=== PATIENT | female | born 1990 | race Caucasian/White ===

== ENCOUNTER 2016-10-14 23:14 | Emergency (ER) | payer MEDICAID ==
[~2016-10-14] VITALS: Ht 165.1 cm; Wt 135.9 kg
[~2016-10-14 23:14] MED LIST: ALBU0.424 IH; HYDR-4031 PO; PARO10TA89 PO
[2016-10-14] MEDS ORDERED: PARO20TA24 PO (23:22)
[2016-10-15] MEDS ORDERED: LIDOCAINE HCL BUFFERED 1% 20 ML VIAL INJ ONE (00:30)
[2016-10-15] MEDS ORDERED: CefTRIAXone 1 GM/DEXTROSE 50 ML IV ONE (00:30)
[2016-10-15 01:07] LABS: BASOPHILS % (AUTO) 0.6 % (0.0-2.0); EOSINOPHILS % (AUTO) 1.7 % (1.0-6.0); HEMOGLOBIN 11.7 g/dL (12.0-16.0); LYMPHOCYTES # (AUTO) 3.7 K/uL (1.0-4.8); LYMPHOCYTES % (AUTO) 39.7 % (22.0-44.0); MEAN CORPUSCULAR HGB CONC 31.6 G/dL (31.0-37.0); MEAN CORPUSCULAR VOLUME 79 fL (80-100); MONOCYTES # (AUTO) 0.6 K/uL (0.1-1.0); MONOCYTES % (AUTO) 6.7 % (2.0-9.0); NEUTROPHILS # (AUTO) 4.7 K/uL (1.8-7.7); NEUTROPHILS % (AUTO) 51.3 % (40.0-70.0); PLATELET COUNT (AUTO) 261 K/uL (150-450); RED BLOOD CELL COUNT(AUTO) 4.68 MIL/uL (4.00-5.20); RED CELL DISTRIBUTION WIDTH 15.3 % (11.5-14.5); WHITE BLOOD COUNT (AUTO) 9.2 K/uL (4.5-11.0)
[2016-10-15 01:12] LABS: ANION GAP 7 mmol/L (8-16); CALCIUM, TOTAL 8.6 mg/dL (8.8-10.5); CARBON DIOXIDE 30 mmol/L (22-29); CHLORIDE 101 mmol/L (98-107); CREATININE 0.92 mg/dL (0.60-1.30); GLOMERULAR FILTR. RATE CALC > 60 mL/min (>60); POTASSIUM 4.1 mmol/L (3.5-5.1); SODIUM SERUM 138 mmol/L (136-145); UREA NITROGEN, BLOOD 5 mg/dL (7-18)
[2016-10-15 03:03] VITALS: BP 114/80
== END 2016-10-15 03:05 | disposition home or self-care (01) ==
LOC: EMS 23:15
DX: L03.115 Cellulitis of right lower limb (principal); R51 Headache; J45.909 Unspecified asthma, uncomplicated
CPT/HCPCS: 10160; 36415; 80048; 84703; 85025; 96365; 99284; J0696; J3490

== ENCOUNTER 2017-01-02 21:24 | Emergency (ER) | payer MEDICAID ==
[~2017-01-02] VITALS: Ht 160 cm; Wt 136.0 kg
[~2017-01-02 21:24] MED LIST changes: -HYDR-4031 PO; -PARO10TA89 PO; +PARO20TA24 PO
[2017-01-02] MEDS ORDERED: 0.9% SODIUM CHLORIDE 5 ML NEB SOLUTION NEB ONE (21:43)
[2017-01-02] MEDS ORDERED: LEVALBUTEROL HCL 1.25 MG/0.5 ML NEB SOLUTION NEB ONE (21:45)
[2017-01-02] MEDS ORDERED: PredniSONE 20 MG TABLET PO ONE (23:45)
[2017-01-02] MEDS ORDERED: EPINEPHrine 1:1,000 [1 MG/ML] AMP SQ ONE (23:45)
[2017-01-02] MEDS ORDERED: IPRATROPIUM BROMIDE 0.5 MG/2.5 ML NEB SOLUTION NEB ONE (23:45)
[2017-01-02] MEDS ORDERED: ALBUTEROL SULFATE 5 MG/ML 20 ML NEB SOLN [BULK] NEB ONE (23:45)
[2017-01-03 00:45] VITALS: BP 139/77
== END 2017-01-03 01:13 | disposition home or self-care (01) ==
LOC: EMS 21:30
DX: J45.901 Unspecified asthma with (acute) exacerbation (principal)
CPT/HCPCS: 71010; 94644; 96372; 99285; J0171; J7512; J7611; Z7610; 94640

== ENCOUNTER 2017-03-13 18:08 | Emergency (ER) | payer MEDICAID ==
[~2017-03-13] VITALS: Ht 162.6 cm; Wt 125.0 kg
[2017-03-13 19:13] LABS: GLUCOSE, URINE (UA) NEGATIVE (NEGATIVE); KETONES,URINE TRACE mg/dL (NEGATIVE); LEUKOCYTE ESTERASE ,URINE NEGATIVE (NEGATIVE); OCCULT BLOOD,URINE NEGATIVE (NEGATIVE); PROTEIN,URINE TRACE (NEGATIVE)
[2017-03-13 19:18] LABS: ADD UA MICROSCOPIC NO; APPEARANCE,URINE CLEAR (CLEAR)
[2017-03-13] MEDS ORDERED: ACETAMINOPHEN 500 MG TABLET PO ONE (20:15)
[2017-03-13] MEDS ORDERED: IBUPROFEN 600 MG TABLET PO ONE (20:15)
[2017-03-13] MEDS ORDERED: MAG HYDROX/AL HYDROX/SIMETH ES 30 ML SUSPENSION UDCUP PO ONE (20:15)
[2017-03-13 20:16] VITALS: BP 135/72
== END 2017-03-13 20:22 | disposition home or self-care (01) ==
LOC: EMS 18:10
DX: R10.12 Left upper quadrant pain (principal); R07.89 Other chest pain; R11.0 Nausea; J45.909 Unspecified asthma, uncomplicated
CPT/HCPCS: 81025; 93005; 99285

== ENCOUNTER 2017-05-16 19:44 | Emergency (ER) | payer MEDICAID ==
[~2017-05-16] VITALS: Ht 162.6 cm; Wt 122.5 kg
[~2017-05-16 19:44] MED LIST changes: -ALBU0.424 IH; +ALBU1.252 IH; -PARO20TA24 PO
[2017-05-16 21:18] VITALS: BP 118/69
== END 2017-05-16 21:24 | disposition home or self-care (01) ==
LOC: EMS 19:47
DX: N39.0 Urinary tract infection, site not specified (principal); R03.0 Elevated blood-pressure reading, without diagnosis of hypertension; J45.909 Unspecified asthma, uncomplicated
CPT/HCPCS: 81025; 99283

== ENCOUNTER 2018-04-26 20:50 | Emergency (ER) | payer MEDICAID ==
[~2018-04-26] VITALS: Ht 160 cm; Wt 90.9 kg
[2018-04-26] MEDS ORDERED: 0.9% SODIUM CHLORIDE 5 ML NEB SOLUTION NEB ONE ×3 (20:58→22:05)
[2018-04-26] MEDS ORDERED: ALBUTEROL SULFATE HFA 90 MCG/PUFF 8 GM INHALER IH ONE (21:00)
[2018-04-26] MEDS ORDERED: ALBUTEROL SULFATE 5 MG/ML 20 ML NEB SOLN [BULK] NEB ONE ×2 (21:00→22:00)
[2018-04-26] MEDS ORDERED: IPRATROPIUM BROMIDE 0.5 MG/2.5 ML NEB SOLUTION NEB ONE ×2 (21:00→22:00)
[2018-04-26] MEDS ORDERED: PredniSONE 20 MG TABLET PO ONE (22:00)
[2018-04-26 22:52] LABS: INFLUENZA TYPE A NEGATIVE FOR TYPE A (NEGATIVE); INFLUENZA TYPE B NEGATIVE FOR TYPE B (NEGATIVE)
[2018-04-27 00:26] VITALS: BP 118/73
== END 2018-04-27 01:00 | disposition home or self-care (01) ==
LOC: EMS 20:51
DX: J45.901 Unspecified asthma with (acute) exacerbation (principal); F41.9 Anxiety disorder, unspecified; F32.9 Major depressive disorder, single episode, unspecified
CPT/HCPCS: 71046; 87804; 94644; 94645; 99285; J7512; J7611; J3535